=== PATIENT | female | born 1945 | race Caucasian/White ===

== ENCOUNTER 2016-12-10 19:02 | Emergency (ER) | payer OTHER ==
[~2016-12-10] VITALS: Ht 160 cm; Wt 65.8 kg
--- NOTE | ~2016-12-10 | EKG ---
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: : 1945 Requested By: Alvaro De La Garza Order Number: [id number] MD: Tobias Friedman Measurements Intervals Maxie Rate: 77 P: 59 OK: 113 QRS: 16 QRSD: 91 T: 53 QT: 421 QTc: 477 Interpretive Statements Sinus rhythm Nonspecific ST segment abnormality Borderline prolonged QT interval No previous ECG available for comparison Electronically Signed On 12-11-2016 8:32:34 CDT by Tobias Friedman [email or web address] <ELECTRONICALLY SIGNED> By: Tobias Friedman MD, [facility] 12/11/16 0832 191 10 Tobias Friedman MD, FACC /EPI
[2016-12-10] MEDS ORDERED: PLAVIX 75 MG TA75 M1 PO (19:16)
[2016-12-10] MEDS ORDERED: PROZAC20 MG (19:16)
[2016-12-10] MEDS ORDERED: ASPIRIN325 PO (19:17)
[2016-12-10] MEDS ORDERED: PROTONIX40 M1 PO (19:17)
[2016-12-10] MEDS ORDERED: LISINOPRIL20 MG (19:18)
[2016-12-10] MEDS ORDERED: ATORVASTATIN CA40 MG PO (19:18)
[2016-12-10] MEDS ORDERED: POTASSIUM20 PO (19:18)
[2016-12-10] MEDS ORDERED: LEVOTHYROXINE0.05 MG PO (19:19)
[2016-12-10] MEDS ORDERED: LOPRESSOR50 (19:19)
[2016-12-10 20:05] LABS: HEMATOCRIT 45.5 % (37.0-47.0); HEMOGLOBIN 14.9 gm/dL (12.0-15.0); MANUAL DIFF YES; MCH 30.4 pg (26.0-34.0); MCHC 32.8 g/dL (28.0-37.0); MCV 92.8 fL (80.0-100.0); PLATELET COUNT 466 thou/uL (150-400); RBC 4.91 mil/uL (4.20-5.00); RDW 13.8 % (10.5-14.5); WBC 22.4 thou/uL (4.0-11.0)
[2016-12-10 20:19] LABS: ANION GAP 7 mmol/L (7-16); APTT 22.8 Seconds (24.5-32.8); BUN 21 mg/dL (7-18); CALCIUM 9.4 mg/dL (8.5-10.1); CHLORIDE 105 mmol/L (98-107); CO2 26 mmol/L (21-32); CREATININE 1.4 mg/dL (0.6-1.0); GLUCOSE 136 mg/dL (74-106); SODIUM 138 mmol/L (136-145)
[2016-12-10 20:28] LABS: ABSOLUTE NEUTROPHILS 18.4 thou/uL (1.4-8.2); ANISOCYTOSIS 1+; TOTAL CELL COUNT 100
[2016-12-10 20:36] LABS: ALBUMIN 3.2 g/dL (3.4-5.0); ALKALINE PHOSPHATASE 98 U/L (46-116); CK-MB MASS 1.2 ng/mL (<0.5-3.6); MAGNESIUM 1.5 mg/dL (1.8-2.4); NT-PRO BRAIN NAT PEPTIDE 794 pg/mL (<300); SGOT 18 U/L (15-37); SGPT 15 U/L (30-65); TOTAL BILIRUBIN 0.2 mg/dL (<0.1-1.0); TOTAL PROTEIN 7.1 g/dL (6.4-8.2); TROPONIN-I < 0.04 ng/mL (<0.04-0.07)
[2016-12-10] MEDS ORDERED: ZOFRAN ODT8 MG PO (21:41)
[2016-12-10] MEDS ORDERED: PREDNISONE 20 M20 MG PO (21:41)
[2016-12-10 22:04] VITALS: BP 103/55
== END 2016-12-10 22:05 | disposition home or self-care (01) ==
LOC: ER 19:02
PROVIDERS: Emergency Medicine
DX: K21.9 Gastro-esophageal reflux disease without esophagitis (principal); J44.9 Chronic obstructive pulmonary disease, unspecified; I25.10 Atherosclerotic heart disease of native coronary artery without angina pectoris; G89.29 Other chronic pain; I10 Essential (primary) hypertension; G47.00 Insomnia, unspecified; F17.210 Nicotine dependence, cigarettes, uncomplicated